=== PATIENT | female | born 1940 | race Hispanic/Latino ===

== ENCOUNTER → 2021-05-24 | Outpatient (CLI) | payer MEDICARE ==
[~2021-05-24] MED LIST: IOPAMIDOL 370 MG/ML 200 ML INFUS..BTL INJ ONE; SODIUM CHLORIDE 0.9% 50ML 50 ML ONE
[2021-05-24 08:42] LABS: CREATININE, SERUM 0.93 mg/dL (0.57-1.11)
== END ==
LOC: CT 07:38
PROVIDERS: ATTEND Family Medicine
DX: R05.3 Chronic cough (principal); R91.1 Solitary pulmonary nodule; R06.2 Wheezing
CPT/HCPCS: 36415; 71260; 77080; 82565; 84520; Q9967

== ENCOUNTER → 2021-11-03 | Outpatient (CLI) | payer MEDICARE | LOC: CT 11:45 | PROVIDERS: ATTEND Family Medicine | DX: H81.4 Vertigo of central origin (principal); E87.4 Mixed disorder of acid-base balance | CPT/HCPCS: 70450 ==

== ENCOUNTER → 2021-12-16 | Outpatient (CLI) | payer MEDICARE | LOC: CT 13:50 | PROVIDERS: ATTEND Family Medicine | DX: R91.1 Solitary pulmonary nodule (principal); E04.1 Nontoxic single thyroid nodule | CPT/HCPCS: 71250; 76536 ==